=== PATIENT | male | born 1970 | race Caucasian/White ===

== ENCOUNTER 2018-09-26 18:40 | Emergency (ER) | payer BC ==
[2018-09-26 19:03] VITALS: BP 128/86; PULSE 90; RESP 18; TEMP 98.4
--- NOTE | 2018-09-26 19:28 | ED ---
General Adult HPI - General Source: patient, RN notes reviewed Mode of arrival: ambulatory Limitations: no limitations <Gregg Ayala P - Last Filed: 09/26/18 20:45> <Krissy Mejia P - Last Filed: 09/26/18 23:19> - General Chief complaint: Extremity Injury, Lower Stated complaint: Foot injury Time Seen by Provider: 09/26/18 19:11 - History of Present Illness Initial comments: 48-year-old male presents to the emergency department for a chief complaint of right ankle pain 1 hour. Patient states he was walking down the stairs when he missed the last at and "twisted" his ankle. He is not sure which direction he twisted the ankle. He denies falling or any other injuries. He states it immediately began to swell. He states he did receive 600 mg of Motrin has not had a chance to ice the area. Patient has no other complaints at this time including shortness of breath, chest pain, abdominal pain, nausea or vomiting, headache, or visual changes. (Gregg Ayala) - Related Data Home Medications Medication Instructions Recorded Confirmed No Known Home Medications 09/26/18 09/26/18 Allergies Allergy/AdvReac Type Severity Reaction Status Date / Time No Known Allergies Allergy Verified 09/26/18 19:03 Review of Systems ROS Other: All systems not noted in ROS Statement are negative. <Gregg Ayala P - Last Filed: 09/26/18 20:45> ROS Other: All systems not noted in ROS Statement are negative. <Krissy Mejia P - Last Filed: 09/26/18 23:19> ROS Statement: Those systems with pertinent positive or pertinent negative responses have been documented in the HPI. Past Medical History Past Medical History: No Reported History History of Any Multi-Drug Resistant Organisms: None Reported Additional Past Surgical History / Comment(s): Deviated septum, Lt shoulder and knuckle Past Psychological History: No Psychological Hx Reported Smoking Status: Never smoker Past Alcohol Use History: Occasional Past Drug Use History: None Reported <Gregg Ayala - Last Filed: 09/26/18 20:45> General Exam Limitations: no limitations General appearance: alert, in no apparent distress Head exam: Present: atraumatic, normocephalic, normal inspection Eye exam: Present: normal appearance, PERRL, EOMI. Absent: scleral icterus, conjunctival injection, periorbital swelling ENT exam: Present: normal exam, mucous membranes moist Neck exam: Present: normal inspection, full ROM. Absent: tenderness, meningismus, lymphadenopathy Respiratory exam: Present: normal lung sounds bilaterally. Absent: respiratory distress, wheezes, rales, rhonchi, stridor Cardiovascular Exam: Present: regular rate, normal rhythm, normal heart sounds. Absent: systolic murmur, diastolic murmur, rubs, gallop, clicks Extremities exam: Present: full ROM (Full range of motion of the right ankle), tenderness (Tenderness over the lateral malleolus of the right ankle, no tenderness in the right foot. No tenderness of the navicular or fifth metatarsal in the right foot.), normal capillary refill (Capillary refill less than 2 seconds and DP pulse 2+ in the right lower extremity.), joint swelling ( Significant edema noted to the right malleolus. No edema or erythema noted otherwise. No ecchymosis noted.), other (Sensation intact in the right lower extremity.). Absent: calf tenderness <Gregg Ayala P - Last Filed: 09/26/18 20:45> Vital Signs 09/26/18 19:00 Temperature 98.4 F Pulse Rate 90 Respiratory 18 Rate Blood Pressure 128/86 O2 Sat by Pulse 98 Oximetry Procedures <Gregg Ayala P - Last Filed: 09/26/18 20:45> <Krissy Mejia P - Last Filed: 09/26/18 23:19> - Procedures Initial comment: Neurovascular intact before splint application Indication: Ankle pain Type: Posterior short leg Wounds: no abrasions or lacerations underneath splint Neurovascular status: patient has sensation and movement of digits extending outside the splint, there is no cyanosis, capillary refill < 2 seconds Follow-up: patient given number for orthopedics and instructed to phone to make an appointment. Patient aware he can return to the Emergency Department if any difficulties. (Gregg Ayala) Medical Decision Making <Gregg Ayala - Last Filed: 09/26/18 20:45> <Krissy Mejia - Last Filed: 09/26/18 23:19> - Medical Decision Making 48-year-old male presents to the emergency department for a chief complaint of right lower extremity pain times 1 hour. Patient missed the last step while walking on the stairs and "twisted" his ankle. He is unsure which direction he twisted his ankle. He states he did ambulate on it but it is painful. On exam patient does have significant edema noted over the lateral malleolus of the right ankle. No significant tenderness or swelling in the right foot. Neurovascular intact. X-ray of the right foot shows no fracture or dislocation. X-ray of the right ankle shows soft tissue swelling without fracture over the lateral malleolus. Although there is no fracture as there is significant soft tissue swelling over the lateral malleolus patient likely has a sprain and will be splinted with a posterior short leg splint. He will follow up with orthopedics in one to 2 days and use crutches. He will return if he has any worsening symptoms. (Gregg Ayala) I was available for consultation in the emergency department. The history and physical exam were done by the midlevel provider. I was consulted for this patient's care. I reviewed the case with the midlevel provider and based on their presentation of the patient, I agree with the assessment, medical decision making and plan of care as documented. (Krissy Mejia) Disposition Is patient prescribed a controlled substance at d/c from ED?: No Time of Disposition: 20:43 <Gregg Ayala P - Last Filed: 09/26/18 20:45> <Krissy Mejia - Last Filed: 09/26/18 23:19> Clinical Impression: Ankle pain, right Disposition: HOME SELF-CARE Condition: Good Instructions: Ankle Sprain (ED) Additional Instructions: Please rest ice and elevate the right ankle. Please use crutches as needed. Please take Motrin and Tylenol for pain. Follow up with orthopedics in one to 2 days. Return to the emergency department if you have any worsening symptoms. Referrals: Anaid Tejada MD [Primary Care Provider] - 1-2 days Tyler Cardona MD [STAFF PHYSICIAN] - 1-2 days
--- NOTE | 2018-09-26 19:50 | XR ---
EXAMINATION TYPE: XR ankle complete RT DATE OF EXAM: 09/26/2018 COMPARISON: NONE HISTORY: Ankle pain TECHNIQUE: 3 views FINDINGS: There is soft tissue swelling over the lateral malleolus. Ankle mortise is anatomic. There is plantar calcaneal spurring. IMPRESSION: Soft tissue swelling. No fracture seen.
--- NOTE | 2018-09-26 19:51 | XR ---
EXAMINATION TYPE: XR foot complete RT DATE OF EXAM: 09/26/2018 COMPARISON: NONE HISTORY: Pain TECHNIQUE: 3 views FINDINGS: There are plantar and Achilles calcaneal spurs. Metatarsals are intact. I see no fracture n or dislocation. Joint spaces are fairly normal. IMPRESSION: Calcaneal spurring. No fracture.
== END 2018-09-26 20:57 | disposition home or self-care (01) ==
LOC: EC 18:40
DX: M25.571 Pain in right ankle and joints of right foot (principal); X50.1XXA Overexertion from prolonged static or awkward postures, initial encounter; Y93.01 Activity, walking, marching and hiking
CPT/HCPCS: 29515; 99283

== ENCOUNTER 2023-10-17 11:49 | Observation (INO) | payer OTHER ==
[2023-10-17] MEDS ORDERED: SODIUM CHLORIDE 0.9% 1,000 ML IV STA (12:25)
[2023-10-17] MEDS ORDERED: ONDANSETRON 4 MG/2 ML VIAL IVP STA (12:25)
[2023-10-17] MEDS ORDERED: KETOROLAC 15 MG/ML 1 ML VIAL IVP STA (12:25)
[2023-10-17] MEDS ORDERED: HYDROmorphone 0.5 MG/0.5 ML SYRINGE IVP STA (12:26)
[2023-10-17 12:56] LABS: Basophils % (A) 0 %; Eosinophils # (A) 0.1 k/uL (0-0.7); Eosinophils % (A) 0 %; HCT 43.1 % (39.0-53.0); HGB 14.6 gm/dL (13.0-17.5); Lymphocytes # (A) 0.9 k/uL (1.0-4.8); Lymphocytes % (A) 8 %; MCH 29.9 pg (25.0-35.0); MCHC 33.7 g/dL (31.0-37.0); MCV 88.5 fL (80.0-100.0); Mean Platelet Volume 7.1; Monocytes # (A) 0.3 k/uL (0-1.0); Monocytes % (A) 2 %; Neutrophils # (A) 9.9 k/uL (1.3-7.7); Neutrophils % (A) 89 %; Platelet Count 311 k/uL (150-450); RBC 4.87 m/uL (4.30-5.90); RDW 12.9 % (11.5-15.5); WBC 11.1 k/uL (3.8-10.6)
--- NOTE | 2023-10-17 12:57 | ED ---
Abdominal Pain HPI - General Chief Complaint: Abdominal Pain Stated Complaint: abd pain/back pain Time Seen by Provider: 10/17/23 12:13 Source: patient, RN notes reviewed Mode of arrival: ambulatory Limitations: no limitations - History of Present Illness Initial Comments: This is a 53-year-old male who presents to the emergency department for abdominal pain. States that since about 7 AM he has had pain in the epigastric region shooting into his back. Reports associated nausea but no vomiting. He had pizza for dinner last night but has not yet eaten today. Denies any history of similar symptoms in the past. He does not have pain in the chest or shortness of breath. Denies any diarrhea or constipation. Also denies any fevers or chills. Denies any known problems with his gallbladder. MD Complaint: abdominal pain - Related Data Home Medications Medication Instructions Recorded Confirmed Sertraline [Zoloft] 50 mg PO DAILY 01/07/23 10/17/23 Vit C/E/Zn/Coppr/Lutein/Zeaxan 1 cap PO DAILY 01/07/23 10/17/23 [Preservision Areds 2 Softgel] Allergies Allergy/AdvReac Type Severity Reaction Status Date / Time No Known Allergies Allergy Verified 10/17/23 18:07 Review of Systems ROS Statement: Those systems with pertinent positive or pertinent negative responses have been documented in the HPI. ROS Other: All systems not noted in ROS Statement are negative. Past Medical History Past Medical History: No Reported History History of Any Multi-Drug Resistant Organisms: None Reported Additional Past Surgical History / Comment(s): Deviated septum surgery, left shoulder and knuckle surgery. Past Anesthesia/Blood Transfusion Reactions: No Reported Reaction Past Psychological History: No Psychological Hx Reported Smoking Status: Never smoker Past Alcohol Use History: Occasional Past Drug Use History: None Reported - Past Family History Mother Family Medical History: No Reported History General Exam Limitations: no limitations General appearance: alert, in distress Head exam: Present: atraumatic, normocephalic, normal inspection Respiratory exam: Present: normal lung sounds bilaterally. Absent: respiratory distress, wheezes, rales, rhonchi, stridor Cardiovascular Exam: Present: regular rate, normal rhythm, normal heart sounds. Absent: systolic murmur, diastolic murmur, rubs, gallop, clicks GI/Abdominal exam: Present: soft, tenderness (RUQ and epigastric), normal bowel sounds. Absent: distended Neurological exam: Present: alert, oriented X3, CN II-XII intact Psychiatric exam: Present: normal affect, normal mood Skin exam: Present: warm, dry, intact, normal color. Absent: rash Course Vital Signs 10/17/23 11:51 Temperature 97.3 F L Pulse Rate 67 Respiratory 16 Rate Blood Pressure 181/84 O2 Sat by Pulse 96 Oximetry Medical Decision Making - Medical Decision Making This is a 53-year-old male who presents to the emergency department for abdominal pain. Was pt. sent in by a medical professional or institution? @ -No Did you speak to anyone other than the patient for history? @ -No Did you review nursing and triage notes? @ -Yes, and I agree, it is accurate with regards to the patient's symptoms. Were old charts reviewed? @ -No Differential Diagnosis? @ -Differential Abdominal Pain Men: Appendicitis, cholecystitis, diverticulosis, ischemic bowel, pancreatitis, hepatitis, UTI, gastroenteritis, AAA, incarcerated hernia, bowel obstruction, constipation, inflammatory bowel, hepatitis, peptic ulcer disease, splenic inf arction, perforated viscus, testicular torsion, this is not meant to be an all- inclusive list EKG interpreted by me (3pts min.)? @ EKG interpreted by me demonstrating the following: Sinus rhythm. Ventricular rate 66 beats per minute, WV interval 185 ms, QRS duration 90 ms, QTC 401 ms. X-rays interpreted by me (1pt min.)? @ -Not obtained CT interpreted by me (1pt min.)? @ -Computed tomography scan of the abdomen and pelvis obtained. My interpretation identifies no evidence of bowel wall thickening or free air. U/S interpreted by me (1pt. min.)? @ -Gallbladder ultrasound obtained. My interpretation identifies cholelithiasis without evidence of gallbladder wall thickening. What testing was considered but not performed? (CT, X-rays, U/S, labs)? Why? @ -None What meds were considered but not given? Why? @ -None Did you discuss the management of the patient with other professionals? @ -Yes, Dr. Dorantes, who accepts the patient for admission. Did you reconcile home meds? @ -No Was smoking cessation discussed for >3mins.? @ -No Was critical care preformed (if so, how long)? @ -No Were there social determinants of health that impacted care today? How? (Homelessness, low income, unemployed, alcoholism, drug addiction, transportation, low edu. Level, literacy, decrease access to med. care, snf, rehab)? @ -No Was there de-escalation of care discussed even if they declined? (Discuss DNR or withdrawal of care, Hospice)? @ -No What co-morbidities impacted this encounter? (DM, HTN, Smoking, COPD, CAD, Cancer, CVA, Hep., AIDS, mental health diagnosis, sleep apnea, morbid obesity)? @ -None Was patient admitted / discharged? @ -Admitted. Lab work obtained revealing mild leukocytosis and no other actionable findings. Liver and pancreatic enzymes are within normal limits. We initially obtained a gallbladder ultrasound. This revealed cholelithiasis w ithout evidence of gallbladder wall thickening or findings suggestive of acute cholecystitis. However, given his level of discomfort we did also obtain a computed tomography scan of the abdomen and pelvis to evaluate for any other acute process that could be contributing to his pain. This revealed no acute findings. Symptoms likely related to biliary colic. His symptoms were initially controlled with Toradol and Dilaudid, however they ended up returning and he required an additional dose of Dilaudid. Given the severity of his discomfort, case was discussed with general surgery, who is agreeable to admission for symptom control. ED attending, Dr. June, did also speak with melinda marroquin lanny they refused admission to themselves due to this likely being a surgical case. Advised the patient that surgery will come and evaluate him, however it is not entirely clear if they will remove his gallbladder or not, and this will be left up to their discretion. In the event any surgical intervention will take place, I did order blood cultures, start the patient on Zosyn, and keep him NPO after midnight. Undiagnosed new problem with uncertain prognosis? @ -None Drug Therapy requiring intensive monitoring for toxicity (Heparin, Nitro, Insulin, Cardizem)? @ -None Were any procedures done? @ -None Diagnosis/symptom? @ -Symptomatic cholelithiasis Acute, or Chronic, or Acute on Chronic? @ -Acute Uncomplicated (without systemic symptoms) or Complicated (systemic symptoms)? @ -Complicated Side effects of treatment? @ -None Exacerbation, Progression, or Severe Exacerbation] @ -Not applicable Poses a threat to life or bodily function? @ -Yes This case was discussed in detail with the attending ED physician, Dr. June. Presentation, findings, and treatment plan discussed in detail as well. - Lab Data Result diagrams: 10/17/23 12:32 10/17/23 12:32 Lab Results 10/17/23 10/17/23 10/17/23 Range/Units 12:32 12:32 12:32 WBC 11.1 H (3.8-10.6) k/uL RBC 4.87 (4.30-5.90) m/uL Hgb 14.6 (13.0-17.5) gm/dL Hct 43.1 (39.0-53.0) % MCV 88.5 (80.0-100.0) fL MCH 29.9 (25.0-35.0) pg MCHC 33.7 (31.0-37.0) g/dL RDW 12.9 (11.5-15.5) % Plt Count 311 (150-450) k/uL MPV 7.1 Neutrophils % 89 % Lymphocytes % 8 % Monocytes % 2 % Eosinophils % 0 % Basophils % 0 % Neutrophils # 9.9 H (1.3-7.7) k/uL Lymphocytes # 0.9 L (1.0-4.8) k/uL Monocytes # 0.3 (0-1.0) k/uL Eosinophils # 0.1 (0-0.7) k/uL Basophils # 0.0 (0-0.2) k/uL Sodium 142 (137-145) mmol/L Potassium 4.8 (3.5-5.1) mmol/L Chloride 106 (98-107) mmol/L Carbon Dioxide 23 (22-30) mmol/L Anion Gap 13 mmol/L BUN 21 H (9-20) mg/dL Creatinine 0.78 (0.66-1.25) mg/dL Est GFR (CKD-EPI)AfAm >90 (>60 ml/min/1.73 sqM) Est GFR (CKD-EPI)NonAf >90 (>60 ml/min/1.73 sqM) Glucose 118 H (74-99) mg/dL Plasma Lactic Acid Leon 1.3 (0.7-2.0) mmol/L Calcium 9.6 (8.4-10.2) mg/dL Total Bilirubin 0.8 (0.2-1.3) mg/dL AST 46 (17-59) U/L ALT 36 (4-49) U/L Alkaline Phosphatase 76 (38-126) U/L Troponin I (0.000-0.034) ng/mL Total Protein 8.0 (6.3-8.2) g/dL Albumin 4.7 (3.5-5.0) g/dL Amylase 52 (30-110) U/L Lipase 57 (23-300) U/L 10/17/23 Range/Units 12:32 WBC (3.8-10.6) k/uL RBC (4.30-5.90) m/uL Hgb (13.0-17.5) gm/dL Hct (39.0-53.0) % MCV (80.0-100.0) fL MCH (25.0-35.0) pg MCHC (31.0-37.0) g/dL RDW (11.5-15.5) % Plt Count (150-450) k/uL MPV Neutrophils % % Lymphocytes % % Monocytes % % Eosinophils % % Basophils % % Neutrophils # (1.3-7.7) k/uL Lymphocytes # (1.0-4.8) k/uL Monocytes # (0-1.0) k/uL Eosinophils # (0-0.7) k/uL Basophils # (0-0.2) k/uL Sodium (137-145) mmol/L Potassium (3.5-5.1) mmol/L Chloride (98-107) mmol/L Carbon Dioxide (22-30) mmol/L Anion Gap mmol/L BUN (9-20) mg/dL Creatinine (0.66-1.25) mg/dL Est GFR (CKD-EPI)AfAm (>60 ml/min/1.73 sqM) Est GFR (CKD-EPI)NonAf (>60 ml/min/1.73 sqM) Glucose (74-99) mg/dL Plasma Lactic Acid Leon (0.7-2.0) mmol/L Calcium (8.4-10.2) mg/dL Total Bilirubin (0.2-1.3) mg/dL AST (17-59) U/L ALT (4-49) U/L Alkaline Phosphatase (38-126) U/L Troponin I <0.012 (0.000-0.034) ng/mL Total Protein (6.3-8.2) g/dL Albumin (3.5-5.0) g/dL Amylase (30-110) U/L Lipase (23-300) U/L - Radiology Data Radiology results: report reviewed, image reviewed Disposition Clinical Impression: Symptomatic cholelithiasis Disposition: ADMITTED IP TO THIS [facility] Referrals: Anaid Tejada MD [Primary Care Provider] - 1-2 days
[2023-10-17 13:06] LABS: ALT 36 U/L (4-49); African American GFR (CKD) >90 (>60 ml/min/1.73 sqM); Albumin 4.7 g/dL (3.5-5.0); Amylase 52 U/L (30-110); Anion Gap 13 mmol/L; Blood Urea Nitrogen 21 mg/dL (9-20); Calcium 9.6 mg/dL (8.4-10.2); Carbon Dioxide 23 mmol/L (22-30); Chloride 106 mmol/L (98-107); Glucose 118 mg/dL (74-99); Lipase 57 U/L (23-300); Non-African American GFR(CKD) >90 (>60 ml/min/1.73 sqM); Sodium 142 mmol/L (137-145); Total Bilirubin 0.8 mg/dL (0.2-1.3)
[2023-10-17 13:17] LABS: AST 46 U/L (17-59); Potassium 4.8 mmol/L (3.5-5.1)
[2023-10-17 13:18] LABS: Alkaline Phosphatase 76 U/L (38-126)
--- NOTE | 2023-10-17 14:34 | US ---
EXAMINATION TYPE: US gallbladder DATE OF EXAM: 10/17/2023 COMPARISON: NONE CLINICAL INDICATION: Male, 53 years old with history of RUQ and epigastric pain; Abdominal pain today , nausea TECHNIQUE: Multiple sonographic images of the right upper quadrant are obtained. FINDINGS: EXAM MEASUREMENTS: Liver Length: 17.2 cm Gallbladder Wall: 0.3 cm Right Kidney: 11.2 x 5.6 x 5.0 cm GUIDE VISITOR NOTES: Technical limitations due to patient's body habitus and large amount of overlyin g bowel gas Pancreas: Obscured by bowel gas Liver: attenuating, heterogeneous Gallbladder: multiple small stones Evidence for sonographic Uriarte's sign: no CBD: Obscured by overlying bowel gas Right Kidney: no evidence of hydronephrosis IMPRESSION: 1. Cholelithiasis. Sonographic Uriarte sign negative. There is no gallbladder distention or pericholec ystic fluid. 2. Possible mild fatty liver.
--- NOTE | 2023-10-17 16:15 | CT ---
EXAMINATION TYPE: CT abdomen pelvis w con DATE OF EXAM: 10/17/2023 COMPARISON: None HISTORY: Epigastric pain Automated exposure control for dose reduction was used. TECHNIQUE: Helical acquisition of images was performed from the lung bases through the pelvis findin gs uneventful menstruation nonionic IV contrast material. FINDINGS: The lung bases are clear. The gallbladder is normal without wall thickening, distention, gallstones or pericholecystic fluid. T here is no biliary ductal dilatation. There is no focal mass or organomegaly involving the liver, pancreas, spleen or adrenal glands. There is no solid renal mass or hydronephrosis. The caliber the abdominal aorta is normal. The bowel loops are normal in caliber and there is no dilatation or obstruction. No inflammatory saul ges identified in the bowel wall or mesentery and there is no free intraperitoneal air or fluid. There is no pelvic mass, free fluid, abscess or adenopathy. The osseous structures and soft tissues are unremarkable. IMPRESSION: No significant abnormality seen.
[2023-10-17] MEDS ORDERED: HYDROmorphone 1 MG/ML 1 ML SYRINGE IVP STA (17:09)
[2023-10-17] MEDS ORDERED: ONDANSETRON 4 MG/2 ML VIAL IVP PRN (17:26)
[2023-10-17] MEDS ORDERED: HYDROmorphone 0.5 MG/0.5 ML SYRINGE IVP PRN (17:26)
[2023-10-17] MEDS ORDERED: NALOXONE 0.4 MG/ML 1 ML VIAL IV PRN (17:26)
[2023-10-17] MEDS ORDERED: PIPERACILLIN-TAZOBACTAM 3.375 GM in SODIUM CHLORIDE 0.9% 100 ML IVPB STA (17:34)
[2023-10-17] MEDS: SODIUM CHLORIDE 0.9% 1,000 ML IV SCH (17:53)
[2023-10-17] MEDS: HYDROmorphone 1 MG/ML 1 ML SYRINGE IVP PRN ×2 (20:57→23:56)
--- NOTE | 2023-10-17 21:09 | P.GSCN ---
History of Present Illness Consult date: 10/17/23 History of present illness: - History of Present Illness Initial Comments: This is a 53-year-old male who presents to the emergency department for abdominal pain. States that since about 7 AM he has had pain in the epigastric region shooting into his back. Reports associated nausea but no vomiting. He had pizza for dinner last night but has not yet eaten today. Denies any history of similar symptoms in the past. He does not have pain in the chest or shortness of breath. Denies any diarrhea or constipation. Also denies any fevers or chills. Denies any known problems with his gallbladder. MD Complaint: abdominal pain - Related Data Home Medications Medication Instructions Recorded Confirmed Sertraline [Zoloft] 50 mg PO DAILY 01/07/23 10/17/23 Vit C/E/Zn/Coppr/Lutein/Zeaxan 1 cap PO DAILY 01/07/23 10/17/23 [Preservision Areds 2 Softgel] Allergies Allergy/AdvReac Type Severity Reaction Status Date / Time No Known Allergies Allergy Verified 10/17/23 18:07 Review of Systems ROS Statement: Those systems with pertinent positive or pertinent negative responses have been documented in the HPI. ROS Other: All systems not noted in ROS Statement are negative. Past Medical History Past Medical History: No Reported History History of Any Multi-Drug Resistant Organisms: None Reported Additional Past Surgical History / Comment(s): Deviated septum surgery, left shoulder and knuckle surgery. Past Anesthesia/Blood Transfusion Reactions: No Reported Reaction Past Psychological History: No Psychological Hx Reported Smoking Status: Never smoker Past Alcohol Use History: Occasional Past Drug Use History: None Reported - Past Family History Mother Family Medical History: No Reported History General Exam Limitations: no limitations General appearance: alert, in distress Head exam: Present: atraumatic, normocephalic, normal inspection Respiratory exam: Present: normal lung sounds bilaterally. Absent: respiratory distress, wheezes, rales, rhonchi, stridor Cardiovascular Exam: Present: regular rate, normal rhythm, normal heart sounds. Absent: systolic murmur, diastolic murmur, rubs, gallop, clicks GI/Abdominal exam: Present: soft, tenderness (RUQ and epigastric), normal bowel sounds. Absent: distended Neurological exam: Present: alert, oriented X3, CN II-XII intact Psychiatric exam: Present: normal affect, normal mood Skin exam: Present: warm, dry, intact, normal color. Absent: rash Course Vital Signs 10/17/23 11:51 Temperature 97.3 F L Pulse Rate 67 Respiratory 16 Rate Blood Pressure 181/84 O2 Sat by Pulse 96 Oximetry - Lab Data Result diagrams: 10/17/23 12:32 10/17/23 12:32 Lab Results 10/17/23 10/17/23 10/17/23 Range/Units 12:32 12:32 12:32 WBC 11.1 H (3.8-10.6) k/uL RBC 4.87 (4.30-5.90) m/uL Hgb 14.6 (13.0-17.5) gm/dL Hct 43.1 (39.0-53.0) % MCV 88.5 (80.0-100.0) fL MCH 29.9 (25.0-35.0) pg MCHC 33.7 (31.0-37.0) g/dL RDW 12.9 (11.5-15.5) % Plt Count 311 (150-450) k/uL MPV 7.1 Neutrophils % 89 % Lymphocytes % 8 % Monocytes % 2 % Eosinophils % 0 % Basophils % 0 % Neutrophils # 9.9 H (1.3-7.7) k/uL Lymphocytes # 0.9 L (1.0-4.8) k/uL Monocytes # 0.3 (0-1.0) k/uL Eosinophils # 0.1 (0-0.7) k/uL Basophils # 0.0 (0-0.2) k/uL Sodium 142 (137-145) mmol/L Potassium 4.8 (3.5-5.1) mmol/L Chloride 106 (98-107) mmol/L Carbon Dioxide 23 (22-30) mmol/L Anion Gap 13 mmol/L BUN 21 H (9-20) mg/dL Creatinine 0.78 (0.66-1.25) mg/dL Est GFR (CKD-EPI)AfAm >90 (>60 ml/min/1.73 sqM) Est GFR (CKD-EPI)NonAf >90 (>60 ml/min/1.73 sqM) Glucose 118 H (74-99) mg/dL Plasma Lactic Acid Leon 1.3 (0.7-2.0) mmol/L Calcium 9.6 (8.4-10.2) mg/dL Total Bilirubin 0.8 (0.2-1.3) mg/dL AST 46 (17-59) U/L ALT 36 (4-49) U/L Alkaline Phosphatase 76 (38-126) U/L Troponin I (0.000-0.034) ng/mL Total Protein 8.0 (6.3-8.2) g/dL Albumin 4.7 (3.5-5.0) g/dL Amylase 52 (30-110) U/L Lipase 57 (23-300) U/L 10/17/23 Range/Units 12:32 WBC (3.8-10.6) k/uL RBC (4.30-5.90) m/uL Hgb (13.0-17.5) gm/dL Hct (39.0-53.0) % MCV (80.0-100.0) fL MCH (25.0-35.0) pg MCHC (31.0-37.0) g/dL RDW (11.5-15.5) % Plt Count (150-450) k/uL MPV Neutrophils % % Lymphocytes % % Monocytes % % Eosinophils % % Basophils % % Neutrophils # (1.3-7.7) k/uL Lymphocytes # (1.0-4.8) k/uL Monocytes # (0-1.0) k/uL Eosinophils # (0-0.7) k/uL Basophils # (0-0.2) k/uL Sodium (137-145) mmol/L Potassium (3.5-5.1) mmol/L Chloride (98-107) mmol/L Carbon Dioxide (22-30) mmol/L Anion Gap mmol/L BUN (9-20) mg/dL Creatinine (0.66-1.25) mg/dL Est GFR (CKD-EPI)AfAm (>60 ml/min/1.73 sqM) Est GFR (CKD-EPI)NonAf (>60 ml/min/1.73 sqM) Glucose (74-99) mg/dL Plasma Lactic Acid Leon (0.7-2.0) mmol/L Calcium (8.4-10.2) mg/dL Total Bilirubin (0.2-1.3) mg/dL AST (17-59) U/L ALT (4-49) U/L Alkaline Phosphatase (38-126) U/L Troponin I <0.012 (0.000-0.034) ng/mL Total Protein (6.3-8.2) g/dL Albumin (3.5-5.0) g/dL Amylase (30-110) U/L Lipase (23-300) U/L - Radiology Data Radiology results: report reviewed, image reviewed Clinical Impression: Symptomatic cholelithiasis Admit pain medication reevaluate in the morning possible cholecystectomy Past Medical History Past Medical History: No Reported History History of Any Multi-Drug Resistant Organisms: None Reported Additional Past Surgical History / Comment(s): Deviated septum surgery, left shoulder and knuckle surgery. Past Anesthesia/Blood Transfusion Reactions: No Reported Reaction Past Psychological History: No Psychological Hx Reported Smoking Status: Never smoker Past Alcohol Use History: Occasional Past Drug Use History: None Reported - Past Family History Mother Family Medical History: No Reported History Medications and Allergies Home Medications Medication Instructions Recorded Confirmed Type Sertraline [Zoloft] 50 mg PO DAILY 01/07/23 10/17/23 History Vit C/E/Zn/Coppr/Lutein/Zeaxan 1 cap PO DAILY 01/07/23 10/17/23 History [Preservision Areds 2 Softgel] Allergies Allergy/AdvReac Type Severity Reaction Status Date / Time No Known Allergies Allergy Verified 10/17/23 18:07 Surgical - Exam Vital Signs Temp Pulse Resp BP Pulse Ox 97.3 F L 67 16 181/84 96 10/17/23 11:51 10/17/23 11:51 10/17/23 11:51 10/17/23 11:51 10/17/23 11:51 Results - Labs 10/17/23 12:32 10/17/23 12:32 Abnormal Lab Results - Last 24 Hours (Table) 10/17/23 10/17/23 Range/Units 12:32 12:32 WBC 11.1 H (3.8-10.6) k/uL Neutrophils # 9.9 H (1.3-7.7) k/uL Lymphocytes # 0.9 L (1.0-4.8) k/uL BUN 21 H (9-20) mg/dL Glucose 118 H (74-99) mg/dL Diabetes panel 10/17/23 Range/Units 12:32 Sodium 142 (137-145) mmol/L Potassium 4.8 (3.5-5.1) mmol/L Chloride 106 (98-107) mmol/L Carbon Dioxide 23 (22-30) mmol/L BUN 21 H (9-20) mg/dL Creatinine 0.78 (0.66-1.25) mg/dL Glucose 118 H (74-99) mg/dL Calcium 9.6 (8.4-10.2) mg/dL AST 46 (17-59) U/L ALT 36 (4-49) U/L Alkaline Phosphatase 76 (38-126) U/L Total Protein 8.0 (6.3-8.2) g/dL Albumin 4.7 (3.5-5.0) g/dL Calcium panel 10/17/23 Range/Units 12:32 Calcium 9.6 (8.4-10.2) mg/dL Albumin 4.7 (3.5-5.0) g/dL Pituitary panel 10/17/23 Range/Units 12:32 Sodium 142 (137-145) mmol/L Potassium 4.8 (3.5-5.1) mmol/L Chloride 106 (98-107) mmol/L Carbon Dioxide 23 (22-30) mmol/L BUN 21 H (9-20) mg/dL Creatinine 0.78 (0.66-1.25) mg/dL Glucose 118 H (74-99) mg/dL Calcium 9.6 (8.4-10.2) mg/dL Adrenal panel 10/17/23 Range/Units 12:32 Sodium 142 (137-145) mmol/L Potassium 4.8 (3.5-5.1) mmol/L Chloride 106 (98-107) mmol/L Carbon Dioxide 23 (22-30) mmol/L BUN 21 H (9-20) mg/dL Creatinine 0.78 (0.66-1.25) mg/dL Glucose 118 H (74-99) mg/dL Calcium 9.6 (8.4-10.2) mg/dL Total Bilirubin 0.8 (0.2-1.3) mg/dL AST 46 (17-59) U/L ALT 36 (4-49) U/L Alkaline Phosphatase 76 (38-126) U/L Total Protein 8.0 (6.3-8.2) g/dL Albumin 4.7 (3.5-5.0) g/dL
[2023-10-17] MEDS: PIPERACILLIN-TAZOBACTAM 3.375 GM in SODIUM CHLORIDE 0.9% 100 ML IVPB SCH (23:57)
[2023-10-18] MEDS: SODIUM CHLORIDE 0.9% 1,000 ML IV SCH ×4 (04:55→23:13)
[2023-10-18] MEDS: ACETAMINOPHEN TAB 325 MG TAB PO PRN ×3 (05:37→16:48)
[2023-10-18] MEDS: PIPERACILLIN-TAZOBACTAM 3.375 GM in SODIUM CHLORIDE 0.9% 100 ML IVPB SCH ×3 (08:19→23:10)
--- NOTE | 2023-10-18 10:17 | P.GSCN ---
History of Present Illness Consult date: 10/18/23 Reason for Consult: Cholelithiasis History of present illness: This a 53-year-old male who was admitted through the emergency room with complai nts of abdominal pain.. Patient's workup found evidence of cholelithiasis. She states his pain resolved last night. Past Medical History Past Medical History: No Reported History History of Any Multi-Drug Resistant Organisms: None Reported Additional Past Surgical History / Comment(s): Deviated septum surgery, left shoulder and knuckle surgery. Past Anesthesia/Blood Transfusion Reactions: No Reported Reaction Past Psychological History: No Psychological Hx Reported Smoking Status: Never smoker Past Alcohol Use History: Occasional Past Drug Use History: None Reported - Past Family History Mother Family Medical History: No Reported History Medications and Allergies Home Medications Medication Instructions Recorded Confirmed Type Sertraline [Zoloft] 50 mg PO DAILY 01/07/23 10/17/23 History Vit C/E/Zn/Coppr/Lutein/Zeaxan 1 cap PO DAILY 01/07/23 10/17/23 History [Preservision Areds 2 Softgel] Allergies Allergy/AdvReac Type Severity Reaction Status Date / Time No Known Allergies Allergy Verified 10/17/23 18:07 Surgical - Exam Vital Signs Temp Pulse Resp BP Pulse Ox 97.3 F L 67 16 181/84 96 10/17/23 11:51 10/17/23 11:51 10/17/23 11:51 10/17/23 11:51 10/17/23 11:51 - General well developed, well nourished, no distress - Eyes PERRL - ENT normal pinna - Neck no masses - Respiratory normal expansion - Cardiovascular Rhythm: regular - Abdomen Abdomen: soft, non tender Results - Labs 10/17/23 12:32 10/17/23 12:32 Abnormal Lab Results - Last 24 Hours (Table) 10/17/23 10/17/23 Range/Units 12:32 12:32 WBC 11.1 H (3.8-10.6) k/uL Neutrophils # 9.9 H (1.3-7.7) k/uL Lymphocytes # 0.9 L (1.0-4.8) k/uL BUN 21 H (9-20) mg/dL Glucose 118 H (74-99) mg/dL Diabetes panel 10/17/23 Range/Units 12:32 Sodium 142 (137-145) mmol/L Potassium 4.8 (3.5-5.1) mmol/L Chloride 106 (98-107) mmol/L Carbon Dioxide 23 (22-30) mmol/L BUN 21 H (9-20) mg/dL Creatinine 0.78 (0.66-1.25) mg/dL Glucose 118 H (74-99) mg/dL Calcium 9.6 (8.4-10.2) mg/dL AST 46 (17-59) U/L ALT 36 (4-49) U/L Alkaline Phosphatase 76 (38-126) U/L Total Protein 8.0 (6.3-8.2) g/dL Albumin 4.7 (3.5-5.0) g/dL Calcium panel 10/17/23 Range/Units 12:32 Calcium 9.6 (8.4-10.2) mg/dL Albumin 4.7 (3.5-5.0) g/dL Pituitary panel 10/17/23 Range/Units 12:32 Sodium 142 (137-145) mmol/L Potassium 4.8 (3.5-5.1) mmol/L Chloride 106 (98-107) mmol/L Carbon Dioxide 23 (22-30) mmol/L BUN 21 H (9-20) mg/dL Creatinine 0.78 (0.66-1.25) mg/dL Glucose 118 H (74-99) mg/dL Calcium 9.6 (8.4-10.2) mg/dL Adrenal panel 10/17/23 Range/Units 12:32 Sodium 142 (137-145) mmol/L Potassium 4.8 (3.5-5.1) mmol/L Chloride 106 (98-107) mmol/L Carbon Dioxide 23 (22-30) mmol/L BUN 21 H (9-20) mg/dL Creatinine 0.78 (0.66-1.25) mg/dL Glucose 118 H (74-99) mg/dL Calcium 9.6 (8.4-10.2) mg/dL Total Bilirubin 0.8 (0.2-1.3) mg/dL AST 46 (17-59) U/L ALT 36 (4-49) U/L Alkaline Phosphatase 76 (38-126) U/L Total Protein 8.0 (6.3-8.2) g/dL Albumin 4.7 (3.5-5.0) g/dL - Imaging Additional studies: Abdomen Shows Cholelithiasis. Assessment and Plan Assessment: History of biliary colic. Patient will undergo laparoscopic cholecystectomy in the a.m.
--- NOTE | 2023-10-18 14:46 | P.CONS ---
History of Present Illness - Reason for Consult Consult date: 10/18/23 - Chief Complaint preoperative clearance - History of Present Illness 53 year old man with history of depression, family history of early heart disease presented for abdominal pain. Pt says that he had some pizza and developed some abd pain in his epigastrum/RUQ. He was found to have cholelithi asis and admitted by surgery for biliary colic for elective cholecystectomy. Pt has good exercise tolerance and runs and cycles for exercise regularly without any issues with chest pain. Pts METs > 4. Denies f/c, n/v/c/d, cp, palps, cough/dyspnea, pre/syncope, abd pain, dysuria, dyschezia, numbness/weakness of extremities. Pt is HDS, afebrile. CBC has mild leukocytosis of 11.1, otherwise unremarkable. BMP unremarkable. LFTs unremarkable. Trop negative. Lipase negative. Gallbladder US shows cholelithiasis with neg sonographic nj's. CT A/P shows no significant abnormalities. EKG shows normal sinus rhythm with normal axis and no ST-T changes. All Systems reviewed and pertinent positives and negatives noted in HPI, all other symptoms are negative Gen: in no apparent distress, resting comfortably in bed Eyes: PERRL, no scleral injection or icterus HENT: normocephalic, atraumatic, good hearing acuity, moist mucous membranes Neck: no tracheal deviation, full range of motion Resp: good air exchange, breathing comfortably with no accessory muscle use, no tactile fremitus, clear to auscultation bilaterally CVS: good distal perfusion x 4, no pitting edema, regular rate and rhythm without murmurs GI: soft, NTTP, ND, no hepatosplenomegaly : no suprapubic tenderness, no CVAT, waters catheter not present MSK: no clubbing, no cyanosis, no noted contractures of extremities Skin: no noted rashes, petechiae; temperature of skin is appropriate Neuro: moving all extremities without signs of weakness, CN II-XII intact Psych: cooperative, euthymic mood, insight and judgment intact l Labs and imaging as above Assessment/Plan: Preoperative Clearance Cholelithiasis Biliary Colic -Pts risk factors are optimized for surgery at this time, no further need of testing, and may proceed from medical standpoint -pain control and DVT PPx per surgery Depression -resume sertraline Pt is full code Past Medical History Past Medical History: No Reported History History of Any Multi-Drug Resistant Organisms: None Reported Additional Past Surgical History / Comment(s): Deviated septum surgery, left shoulder and knuckle surgery. Past Anesthesia/Blood Transfusion Reactions: No Reported Reaction Past Psychological History: No Psychological Hx Reported Smoking Status: Never smoker Past Alcohol Use History: Occasional Past Drug Use History: None Reported - Past Family History Mother Family Medical History: No Reported History Medications and Allergies Home Medications Medication Instructions Recorded Confirmed Type Sertraline [Zoloft] 50 mg PO DAILY 01/07/23 10/17/23 History Vit C/E/Zn/Coppr/Lutein/Zeaxan 1 cap PO DAILY 01/07/23 10/17/23 History [Preservision Areds 2 Softgel] Allergies Allergy/AdvReac Type Severity Reaction Status Date / Time No Known Allergies Allergy Verified 10/17/23 18:07 Physical Exam Osteopathic Statement: *. No significant issues noted on an osteopathic structural exam other than those noted in the History and Physical/Consult. Vitals: Vital Signs Temp Pulse Pulse Resp BP BP BP 10/18/23 07:00 100.3 F H 90 12 127/73 10/18/23 06:48 98.2 F 90 18 125/76 10/18/23 02:03 98.7 F 96 14 143/63 10/17/23 21:03 99.1 F 92 15 165/82 10/17/23 20:33 98.1 F 95 18 144/88 10/17/23 20:00 92 10/17/23 18:35 98.0 F 89 18 150/87 Pulse Ox 10/18/23 07:00 93 L 10/18/23 06:48 94 L 10/18/23 02:03 95 10/17/23 21:03 94 L 10/17/23 20:33 93 L 10/17/23 20:00 10/17/23 18:35 96 Intake and Output 10/17/23 10/18/23 10/18/23 22:59 06:59 14:59 Other: # Voids 2 1 Weight 120.202 kg Results CBC & Chem 7: 10/17/23 12:32 10/17/23 12:32
[2023-10-18] MEDS ORDERED: DOCUSATE 100 MG CAP PO STA (22:58)
[2023-10-19] MEDS: ACETAMINOPHEN TAB 325 MG TAB PO PRN (08:05)
[2023-10-19] MEDS: SERTRALINE 50 MG TAB PO SCH (08:05)
[2023-10-19] MEDS: SODIUM CHLORIDE 0.9% 1,000 ML IV SCH ×3 (08:06→23:32)
[2023-10-19] MEDS: PIPERACILLIN-TAZOBACTAM 3.375 GM in SODIUM CHLORIDE 0.9% 100 ML IVPB SCH ×3 (09:10→23:28)
[2023-10-19 09:17] LABS: Basophils % (A) 0 %; Eosinophils # (A) 0.4 k/uL (0-0.7); Eosinophils % (A) 4 %; HCT 38.7 % (39.0-53.0); HGB 13.2 gm/dL (13.0-17.5); Lymphocytes # (A) 1.6 k/uL (1.0-4.8); Lymphocytes % (A) 16 %; MCH 30.3 pg (25.0-35.0); MCHC 34.2 g/dL (31.0-37.0); MCV 88.5 fL (80.0-100.0); Mean Platelet Volume 7.6; Monocytes # (A) 0.6 k/uL (0-1.0); Monocytes % (A) 5 %; Neutrophils # (A) 7.8 k/uL (1.3-7.7); Neutrophils % (A) 74 %; Platelet Count 291 k/uL (150-450); RBC 4.37 m/uL (4.30-5.90); RDW 13.1 % (11.5-15.5); WBC 10.5 k/uL (3.8-10.6)
[2023-10-19] MEDS ORDERED: [UNRECOGNIZED DRUG - REMARK] IV ONE (09:27)
[2023-10-19] MEDS ORDERED: IV FLUID CONTINUATION 1,000 ML IV ONE (09:27)
[2023-10-19 09:33] LABS: ALT 61 U/L (4-49); AST 58 U/L (17-59); African American GFR (CKD) >90 (>60 ml/min/1.73 sqM); Albumin 3.9 g/dL (3.5-5.0); Albumin/Globulin Ratio 1.3; Alkaline Phosphatase 76 U/L (38-126); Anion Gap 9 mmol/L; Blood Urea Nitrogen 11 mg/dL (9-20); Calcium 9.2 mg/dL (8.4-10.2); Carbon Dioxide 25 mmol/L (22-30); Chloride 105 mmol/L (98-107); Glucose 106 mg/dL (74-99); Non-African American GFR(CKD) >90 (>60 ml/min/1.73 sqM); Potassium 3.9 mmol/L (3.5-5.1); Sodium 139 mmol/L (137-145); Total Bilirubin 0.9 mg/dL (0.2-1.3); Total Protein 6.9 g/dL (6.3-8.2)
[2023-10-19] MEDS ORDERED: HEPARIN SODIUM,PORCINE/PF 5,000 UNIT/0.5 ML SYRINGE SQ ONE (09:50)
[2023-10-19] MEDS ORDERED: ONDANSETRON 4 MG/2 ML VIAL IVP ONE (09:54)
[2023-10-19] MEDS ORDERED: DEXAMETHASONE SOD PHOSPHATE 4 MG/ML 1 ML VIAL IVP ONE (09:55)
[2023-10-19] MEDS ORDERED: HEPARIN SODIUM,PORCINE 5,000 UNIT/ML 1 ML VIAL SQ ONE (09:56)
[2023-10-19] MEDS ORDERED: fentaNYL (PF) 50 MCG/ML 2 ML AMP IVP ONE (09:56)
[2023-10-19] MEDS ORDERED: NEOSTIGMINE 1 MG/ML 10 ML VIAL ONE (10:11)
[2023-10-19] MEDS ORDERED: LIDOCAINE 1% INJ 10MG/ML (20 ML MDV) ONE (10:11)
[2023-10-19] MEDS ORDERED: PHENYLEPHRINE-0.9% NACL SYG 1,000 MCG/10 ML SYRINGE ONE (10:11)
[2023-10-19] MEDS ORDERED: fentaNYL (PF) 50 MCG/ML 2 ML AMP ONE (10:11)
[2023-10-19] MEDS ORDERED: GLYCOPYRROLATE 0.2 MG/ML 2 ML VIAL ONE (10:11)
[2023-10-19] MEDS ORDERED: ROCURONIUM 10 MG/ML (5 ML VIAL) IV ONE (10:11)
[2023-10-19] MEDS ORDERED: PROPOFOL 10 MG/ML 20 ML VIAL IV ONE (10:11)
[2023-10-19] MEDS ORDERED: SUCCINYLCHOLINE CHLORIDE 200 MG/10 ML VIAL IV ONE (10:11)
[2023-10-19] MEDS ORDERED: MIDAZOLAM 2 MG/2 ML VIAL ONE (10:11)
[2023-10-19] MEDS ORDERED: LIDOCAINE 4% LTA KIT (4 ML) TOPICAL ONE (10:11)
[2023-10-19] MEDS ORDERED: LIDOCAINE 0.5%-EPI 1:200,000 50 ML VIAL SQ ONE (10:47)
[2023-10-19] MEDS ORDERED: ONDANSETRON 4 MG/2 ML VIAL IVP PRN (11:55)
--- NOTE | 2023-10-19 11:57 | P.OP ---
Date of Procedure: 10/19/23 Preoperative Diagnosis: Cholecystitis Postoperative Diagnosis: Acute cholecystitis Procedure(s) Performed: Laparoscopic cholecystectomy Anesthesia: EVANGELINA Surgeon: Bubba Resendiz Estimated Blood Loss (ml): 10 Pathology: other (gAll bladder) Condition: stable Disposition: PACU Operative Findings: Gallbladder with patchy necrosis Description of Procedure: The patient was placed on the operating table. The patient received a general endotracheal tube anesthesia. The patients abdomen was prepped and draped in the usual sterile fashion. Through an infraumbilical stab incision, the fascia of the anterior abdominal wall was grasped with a pair of Kochers and then the Veress needle was placed in the peritoneal cavity. Position of the Veress needle was confirmed with positive drop test. The abdomen was then insufflated. After adequate insufflation, the 10 mm trocar was placed in the peritoneal cavity. Following this the laparoscope was placed in the peritoneal cavity. The patient was placed in the head-up, right side up position and then a 5 mm trocar was placed in the right lateral and right subcostal position under direct visualization. A 8 mm trocar was placed in the epigastric position. The gallbladder was grasped in the fundus and infundibulum. Traction on the gallbladder was placed in the lateral and the cephalad positions. The triangle of Calot was visualized.. The cystic duct was bluntly dissected until the union of the cystic duct and common bile duct was seen. A critical view of safety was achieved. The cystic duct was then divided and sealed with the Harmonic scissors. A PDS Endoloop was then placed throughout the cystic duct stump. The cystic artery divided and sealed with the Harmonic scissors. The gallbladder was then removed from the liver bed using Harmonic scissors. The gallbladder was then extracted through the epigastric port site. Operative field was checked for any bleeding spots and Harmonic scissors was used to coagulate the liver bed. The abdomen was irrigated. The trocars were removed. The skin was closed using interrupted 3-0 Vicryl suture. Dermabond dressing were applied. The patient tolerated the procedure well.
[2023-10-19] MEDS: HYDROmorphone 1 MG/ML 1 ML SYRINGE IVP PRN ×3 (14:14→23:28)
--- NOTE | 2023-10-19 17:08 | P.PN ---
Subjective Progress Note Date: 10/19/23 Subjective: Patient seen and examined at bedside. No acute events overnight. Pertinent positives and negatives as discussed above, a complete review of systems was performed and all other systems are negative. Vitals Signs Reviewed. General: nontoxic, no distress, appears at stated age Derm: warm, dry Head: atraumatic, normocephalic, symmetric Eyes: EOMI, no lid lag, anicteric sclera Mouth: no lip lesion, mucus membranes moist Cardiovascular: S1S2 reg, no murmur Lungs: CTA bilateral, no rhonchi, no rales , no accessory muscle use Abdominal: soft, nontender to palpation, no guarding, no appreciable organomegaly Ext: no gross muscle atrophy, no edema, no contractures Neuro: CN II-XI grossly intact, no focal neuro deficits Psych: Alert, oriented, appropriate affect Data Reviewed Today: Pertinent Labs: WBC 10.5, potassium 3.9, creatinine 0.79 Imaging: no new imaging Assessment and Plan: Symptomatic Cholelithiasis status post laparoscopic cholecystectomy Depression -consider discontinuing abx -operative notes reviewed -repeat CBC and CMP tomorrow -on tylenol oral when necessary, Dilaudid IV when necessary -Continue sertraline 50 daily -Continue IV fluids at 30 mL an hour DVT ppx: Lovenox Code status: Full code Anticipated discharge place: Pending clinical course Anticipated discharge time: pending clinical course Objective - Vital Signs Vital signs: Vital Signs Temp 98.3 F 10/19/23 12:25 Pulse 72 10/19/23 12:55 Resp 16 10/19/23 12:40 BP 145/88 10/19/23 12:55 Pulse Ox 94 L 10/19/23 12:55 FiO2 Intake & Output 10/18/23 10/19/23 10/19/23 18:59 06:59 18:59 Intake Total 1240 500 Output Total 5 Balance 1240 495 Weight 120.202 kg Intake: IV 500 Intake, IV Titration 1000 Amount Piperacillin-Tazobactam 3 100 .375 gm In Sodium Chloride 0.9% 100 ml @ 200 mls/hr IVPB ONCE STA Rx#:[id number] Sodium Chloride 0.9% 1, 900 000 ml @ 130 mls/hr IV . Q7H42M [facility] Rx#:[id number] Oral 240 Output: Estimated Blood Loss 5 Other: # Voids 3 2 # Bowel Movements 0 - Labs CBC & Chem 7: 10/19/23 08:47 10/19/23 08:47 Labs: Abnormal Lab Results - Last 24 Hours (Table) 10/19/23 10/19/23 Range/Units 08:47 08:47 Hct 38.7 L (39.0-53.0) % Neutrophils # 7.8 H (1.3-7.7) k/uL Glucose 106 H (74-99) mg/dL ALT 61 H (4-49) U/L Microbiology - Last 24 Hours (Table) 10/17/23 18:30 Blood Culture - Preliminary Blood 10/17/23 17:56 Blood Culture - Preliminary Blood
[2023-10-20 02:45] VITALS: TEMP 98
[2023-10-20] MEDS: SODIUM CHLORIDE 0.9% 1,000 ML IV SCH (05:45)
[2023-10-20] MEDS: ACETAMINOPHEN TAB 325 MG TAB PO PRN (05:59)
[2023-10-20 07:30] VITALS: BP 121/71; PULSE 70; RESP 16
[2023-10-20] MEDS ORDERED: HYDROcodone/APAP 5-325MG 1 EACH TAB PO PRN (08:03)
[2023-10-20] MEDS ORDERED: IBUPROFEN 400 MG TAB PO STA (08:21)
[2023-10-20] MEDS: PIPERACILLIN-TAZOBACTAM 3.375 GM in SODIUM CHLORIDE 0.9% 100 ML IVPB SCH (08:49)
[2023-10-20] MEDS: SERTRALINE 50 MG TAB PO SCH (08:50)
[2023-10-20] MEDS ORDERED: ENOXAPARIN 40 MG/0.4 ML SYRINGE SQ SCH (09:00)
[2023-10-20 09:07] LABS: Basophils # (A) 0.02 X 10*3/uL (0.00-0.10); Basophils % (A) 0.2 %; Eosinophils # (A) 0.07 X 10*3/uL (0.04-0.35); Eosinophils % (A) 0.7 %; HCT 35.2 % (39.6-50.0); HGB 11.6 g/dL (13.0-17.0); Lymphocytes # (A) 1.27 X 10*3/uL (0.90-5.00); Lymphocytes % (A) 13.1 %; MCH 29.6 pg (27.0-32.0); MCV 89.8 FL (80.0-97.0); Mean Platelet Volume 10.1 FL (9.5-12.2); Monocytes # (A) 0.42 X 10*3/uL (0.20-1.00); Monocytes % (A) 4.3 %; NRBC Per 100 WBC 0 X 10*3/uL (0.00-0.01); Neutrophils # (A) 7.87 X 10*3/uL (1.80-7.70); Neutrophils % (A) 81.2 %; Platelet Count 287 X 10*3/uL (140-440); RBC 3.92 X 10*6/uL (4.40-5.60); RDW 12.8 % (11.5-14.5)
--- NOTE | 2023-10-20 11:10 | P.DS ---
Providers Date of admission: 10/17/23 18:19 Expected date of discharge: 10/20/23 Attending physician: Elisha Dorantes MD Consults: 10/18/23 08:54 Consult Physician Routine Consulting Provider: Bubba Resendiz Consult Reason/Comments: celia Do you want consulting provider notified?: Already Contacted 10/18/23 10:17 Consult Physician Routine Consulting Provider: No Silverman Consult Reason/Comments: med manage Do you want consulting provider notified?: Yes Primary care physician: [facility] Course: Discharge diagnosis 1. Acute cholecystitis status post laparoscopic cholecystectomy Hospital course This is a 53-year-old male who presented with right upper quadrant abdominal pain and was found have evidence of cholelithiasis. He is status post laparoscopic cholecystectomy. His pain is controlled. He is tolerating diet. He's having flatus. He's afebrile. He has been up and ambulating. He is stable for discharge. Please refer to chart for any further details. Physician Mechanical Engineer note has been reviewed by physician. Signing provider agrees with the documented findings, assessment, and plan of care. Patient Condition at Discharge: Stable Plan - Discharge Summary Discharge Rx Participant: No New Discharge Prescriptions: New Ibuprofen [Motrin] 600 mg PO Q8HR PRN #30 tab PRN Reason: Pain oxyCODONE HCL [OxyIR] 5 mg PO Q6H PRN 3 Days #12 tab PRN Reason: Pain Acetaminophen Tab [Tylenol Tab] 650 mg PO Q4H PRN #30 tablet PRN Reason: Pain Continue Sertraline [Zoloft] 50 mg PO DAILY Vit C/E/Zn/Coppr/Lutein/Zeaxan [Preservision Areds 2 Softgel] 1 cap PO DAILY Discharge Medication List Sertraline [Zoloft] 50 mg PO DAILY 01/07/23 [History] Vit C/E/Zn/Coppr/Lutein/Zeaxan [Preservision Areds 2 Softgel] 1 cap PO DAILY 01/07/23 [History] Acetaminophen Tab [Tylenol Tab] 650 mg PO Q4H PRN #30 tablet 10/20/23 [Rx] Ibuprofen [Motrin] 600 mg PO Q8HR PRN #30 tab 10/20/23 [Rx] oxyCODONE HCL [OxyIR] 5 mg PO Q6H PRN 3 Days #12 tab 10/20/23 [Rx] Follow up Appointment(s)/Referral(s): Anaid Tejada MD [Primary Care Provider] - 1-2 days Bubba Resendiz MD [STAFF PHYSICIAN] - 1 Week Activity/Diet/Wound Care/Special Instructions: No driving while taking OxyIR No lifting over 10 pounds Shower daily. No soaking or tub baths for 2 weeks Very light activity until you are reevaluated at your follow up appointment with your surgeon Discharge Disposition: HOME SELF-CARE
--- NOTE | 2023-10-20 11:30 | P.PN ---
Subjective Progress Note Date: 10/20/23 Subjective: Patient seen and examined at bedside. No acute events overnight. Some abdominal soreness. Pertinent positives and negatives as discussed above, a complete review of systems was performed and all other systems are negative. Vitals Signs Reviewed. General: nontoxic, no distress, appears at stated age Derm: warm, dry Head: atraumatic, normocephalic, symmetric Eyes: EOMI, no lid lag, anicteric sclera Mouth: no lip lesion, mucus membranes moist Cardiovascular: S1S2 reg, no murmur Lungs: CTA bilateral, no rhonchi, no rales , no accessory muscle use Abdominal: soft, nontender to palpation, no guarding, no appreciable organomegaly Ext: no gross muscle atrophy, no edema, no contractures Neuro: CN II-XI grossly intact, no focal neuro deficits Psych: Alert, oriented, appropriate affect Data Reviewed Today: Pertinent Labs: WBC 9.7, hemoglobin 11.6 Imaging: no new imaging Assessment and Plan: Symptomatic Cholelithiasis status post laparoscopic cholecystectomy Normocytic anemia anticipated outcome of surgery Depression -Discontinue on antibiotics at time of discharge -on tylenol oral when necessary, Dilaudid IV when necessary -Continue sertraline 50 daily Patient is medically optimized for discharge home Thank you for allowing us to participate in the care of this pleasant patient. Do not hesitate to contact us with questions. Someone can be reached from the [facility] hospitalist group all hours of the day at [phone] or via [email or web address]. Objective - Vital Signs Vital signs: Vital Signs Temp 98.0 F 10/20/23 07:00 Pulse 70 10/20/23 07:00 Resp 16 10/20/23 07:00 BP 121/71 10/20/23 07:00 Pulse Ox 94 L 10/20/23 07:00 FiO2 Intake & Output 10/19/23 10/20/23 10/20/23 18:59 06:59 18:59 Intake Total 858 Output Total 5 Balance 853 Weight 120.202 kg Intake: IV 500 Oral 358 Output: Estimated Blood Loss 5 Other: # Voids 1 2 - Labs CBC & Chem 7: 10/20/23 05:20 10/19/23 08:47 Labs: Abnormal Lab Results - Last 24 Hours (Table) 10/20/23 Range/Units 05:20 RBC 3.92 L (4.40-5.60) X 10*6/uL Hgb 11.6 L (13.0-17.0) g/dL Hct 35.2 L (39.6-50.0) % Neutrophils # 7.87 H (1.80-7.70) X 10*3/uL Microbiology - Last 24 Hours (Table) 10/17/23 18:30 Blood Culture - Preliminary Blood 10/17/23 17:56 Blood Culture - Preliminary Blood
== END 2023-10-20 12:07 | disposition home or self-care (01) ==
LOC: EC 11:49 → 6NMEDSUR 18:19 → INTOOBSV 18:19 → 6NMEDSUR 20:23 → UNDODISIN 10-20 12:07
PROVIDERS: ADMIT Colon & Rectal Surgery; ATTEND Colon & Rectal Surgery
DX: K80.00 Calculus of gallbladder with acute cholecystitis without obstruction (principal); K82.A1 Gangrene of gallbladder in cholecystitis; D64.9 Anemia, unspecified; F32.A Depression, unspecified; Z79.899 Other long term (current) drug therapy
CPT/HCPCS: 96376 ×3; 96366 ×5; 96361; 96365; 96375; 99285; 36415; 93005; 88304; 80053 ×2; 82150; 83605; 83690; 84484; 85025 ×3; 88312; 87040; 76705; 74177; 47562; G0378 ×4; J2543 ×4; J2250; J0330; J1644; J1100; J2710; J2405 ×2; J2001; J3010; J1170 ×3; J1885; J2704; Q9967; J2371